=== PATIENT | male | born 1970 | race Caucasian/White ===

== ENCOUNTER 2024-05-15 23:55 | Inpatient (IN) | payer OTHER ==
[~2024-05-15] VITALS: Ht 170.2 cm; Wt 129.6 kg
[2024-05-16] VITALS (7 sets, daily range): BP systolic 134–141; BP diastolic 78–85; PULSE 80–87; RESP 16–20; TEMP 97.9–99.1; O2SAT 92–96
--- NOTE | 2024-05-16 00:10 | ED.PDOC ---
HPI Comments HPI: Poor Historian. 54-year-old male presents to emergency department for six day history of midsternal chest tightness feels heaviness. The symptoms got worse today. Patient has a nonspecific cough. Denies any nausea or vomiting or diarrhea or fever. He says that sometimes when he lays flat he feels wheezing. Past Medcial History: Denies any Past Surgical History: Denies any Denies tobacco abuse REVIEW OF SYSTEMS: CONSTITUTIONAL: Denies acute: fever, diaphoresis, chills, generalized weakness. HEAD: Denies acute: headache, photophobia Eyes: Denies acute: Double vision, vision loss, eye pain, eye discharge. EARS: Denies acute: tinnitus, hearing loss, ear discharge, ear pain, THROAT: Denies acute: sore throat, swelling, difficulty swallowing , pain with swallowing, change in voice. NECK: Denies acute: neck pain, neck swelling, stiff neck. HEART: Denies acute : palpitations, LUNGS: Denies acute: SOB, wheezing, hemoptysis ABDOMEN: Denies acute: abdominal pain, Nausea, Vomiting, diarrhea, melena , hematemesis, hematochezia SKIN: Denies acute: rash, redness, lesions, itchiness. EXTREMITIES: Denies acute: calf pain, numbness, tingling, weakness, denies pain in extremity. Denies acute: Low back pain. Neuro: Denies acute: focal neurological deficit, motor or sensory focal neurological deficit, tremors, seizure like activity, confusion, dizziness, change in mental status, loss of bowel or bladder function, cauda equina like symptoms. : Denies acute: dysuria, hematuria, flank pain, increase in urinary frequency. PSYCH: Denies acute: hallucination, suicidal ideation, homicidal ideation. PHYSICAL EXAM: General: no acute distress, awake and alert. Head: normocephalic, atraumatic. Neck: supple, trachea is midline, no swelling. Throat: Normal phonation. Eyes:, no erythema, no purulent discharge, no proptosis, no icterus. Heart: regular rate, regular rhythm, no significant murmur appreciated. Lungs: no apparent respiratory distress, Able to speak in full sentences. No wheezing, right greater than left rhonchi, no crackles. No stridors Abdomen: non tender to palpation, non distended, soft, no guarding, no rebound, + bowel sounds. Obese Neuro: Awake, Alert, oriented to name, self, situation, follows commands GCS=15. Speech is normal. Skin: no petechia, no purpura, no cyanosis, non-pale, not jaundice. Lower extremities: --trace bilateral - Pitting edema no deformity, no focal swelling, no calf TTP. Makes eye contact. moves all four extremities. Face: no apparent facial droop. Ambulating in the ED independently. Time Seen by MD: 00:04 Reviewed Notes: Nurses Notes, Allergies Allergies: Coded Allergies: Shellfish Allergy (Verified Allergy, Unknown, 05/16/24) Information Source: Patient Was a procedure done? Was a procedure done?: No CP Differential Dx Differential Diagnosis: N/A Differential Diagnosis: Other (Ddx include but not limitied to gastritis, mu sculoskeletal pain, radiculopathy, atypical chest pain, dissection, aneurysm, ACS, unstable angina, hiatal hernia, GERD, anxiety, costochondritis, PE, pneumothroax, neoplasm, cardiac ischemia, drug abuse, anemia.) X-Ray, Labs, Meds, VS Vital Signs Date Time Temp Pulse Resp B/P (MAP) Pulse Ox O2 Delivery O2 Flow Rate FiO2 05/16/24 02:16 76 18 148/83 (104) 98 05/16/24 02:10 87 20 96 Room Air* 0 21 05/16/24 00:42 18 97 Room Air* 0 21 05/16/24 00:12 81 05/16/24 00:08 96 Room Air* 0 21 05/16/24 00:08 99.2 87 20 151/94 (113) 96 Lab Test 05/16/24 03:16 05/16/24 01:22 05/16/24 00:28 05/16/24 00:19 Range/Units Troponin I High Sensitivity Pending 3 L 3 L </=54 ng/L White Blood Count 5.7 4.4-10.8 10^3/uL Red Blood Count 4.88 4.5-5.90 10^6/uL Hemoglobin 14.4 13.5-17.5 g/dL Hematocrit 41.9 41.0-53.0 % Mean Corpuscular Volume 85.9 80.0-100.0 fL Mean Corpuscular Hemoglobin 29.4 28.0-32.0 pg Mean Corpuscular Hemoglobin Concent 34.3 32.0-36.0 g/dL Red Cell Distribution Width 13.8 11.8-14.3 % Platelet Count 205 140-450 10^3/uL Mean Platelet Volume 8.0 6.9-10.8 fL Neutrophils (%) (Auto) 50.3 37.0-80.0 % Lymphocytes (%) (Auto) 34.2 10.0-50.0 % Monocytes (%) (Auto) 12.1 H 0.0-12.0 % Eosinophils (%) (Auto) 2.8 0.0-7.0 % Basophils (%) (Auto) 0.6 0.0-2.0 % Neutrophils # (Auto) 2.9 1.6-8.6 10 ^3/uL Lymphocytes # (Auto) 2.0 0.4-5.4 10 ^3/uL Monocytes # (Auto) 0.7 0-1.3 10 ^3/uL Eosinophils # (Auto) 0.2 0-0.8 10 ^3/uL Basophils # (Auto) 0 0-0.2 10 ^3/uL Nucleated Red Blood Cells 0.0 % Sodium Level 137 136-145 mmol/L Potassium Level 3.9 3.5-5.1 mmol/L Chloride Level 102 98-107 mmol/L Carbon Dioxide Level 27 20-31 mmol/L Anion Gap 8 5-15 Blood Urea Nitrogen 7 L 9-23 mg/dL Creatinine 0.77 0.700-1.30 mg/dL Glomerular Filtration Rate Calc 105 >90 mL/min BUN/Creatinine Ratio 9.1 L 10.0-20.0 Serum Glucose 98 74-106 mg/dL Lactic Acid Level 0.9 0.4-2.0 mmol/L Calcium Level 9.6 8.7-10.4 mg/dL Total Bilirubin 0.4 0.2-1.0 mg/dL Aspartate Amino Transferase (AST) 28 13-40 U/L Alanine Aminotransferase (ALT) 26 7-40 U/L Alkaline Phosphatase 70 46-116 U/L B-Type Natriuretic Peptide 5.29 0-100 pg/mL Total Protein 7.0 5.7-8.2 g/dL Albumin 4.3 3.2-4.8 g/dL Influenza Type A Antigen Negative Negative Influenza Type B Antigen Negative Negative SARS-CoV-2 Antigen (Rapid) Negative NEGATIVE Current Medications Medications (Trade) Dose Ordered Sig/Phil Route Start Time Stop Time Status Last Admin Aspirin 325 mg ONCE ONCE PO 05/16/24 00:30 05/16/24 00:31 DC 05/16/24 01:39 Albuterol (Ventolin Medneb) 2.5 mg ONCE ONCE NEB 05/16/24 00:30 05/16/24 00:31 DC 05/16/24 00:41 Ipratropium [place] (Atrovent Medneb) 1 mg ONCE ONCE NEB 05/16/24 00:30 05/16/24 00:31 DC 05/16/24 00:41 Methylprednisolone Sodium Succinate (Solu Medrol) 125 mg ONCE ONCE IV 05/16/24 00:30 05/16/24 00:31 DC 05/16/24 01:39 Ceftriaxone Sodium 50 ml @ 100 mls/hr ONCE ONCE IV 05/16/24 01:30 05/16/24 01:59 DC 05/16/24 01:39 Time of 1ST Reevaluation: 00:00 Reevaluation 1ST: N/A Patient Education/Counseling: Diagnosis, Treatment Family Education/Counseling: Other Comments Patient presented with the above HPI.---cough/chest pain---workup was initiated. patient was found with the above mentioned diagnosis. the following medications were ordered: please refer to order lists of meds and tests obtained by myself Dr. Downs. Patient ED course and VS have been stabilized. Patient has been reassessed in the ED and remained in a stable condition. Pertinent incidental findings were discussed with the patient and/or family. Patient/family voices understanding and is agreeable with plan. Patient has been observed in the ED adequate length of time to insure improvement/stability. Escalation of care considered: Consideration of escalation to observation or admission Patient was ADMITTED to the medicine team for further evaluation and treatment of their presentation. All the reports of any imaging studies that were ordered by myself were reviewed by myself. Departure 1 Departure Time of Disposition: 00:19 Impression: Primary Impression: Chest pain at rest Additional Impression: Pneumonia Disposition: ADMITTED INPATIENT Admit to: [facility] Condition: Guarded Discharged With: Self Critical Care Note Critical Care Time?: No Heart Score Heart Score: Heart Score Response (Comments) Value History Moderate Suspicious 1 EKG Normal 0 Age 45-64 1 Risk Factors 1 or 2 risk factors 1 Troponin Normal limit 0 Total 3 WING DOWNS DO May 16, 2024 00:10
[2024-05-16] MEDS: IPRATROPIUM BROM 0.5 MG/2.5ML INH SOL NEB ONE (00:41)
[2024-05-16] MEDS: ALBUTEROL SULF 2.5 MG/0.5ML(0.5%) NEB SOLN NEB ONE (00:41)
[2024-05-16 00:46] LABS: Basophils # (auto) 0 10 ^3/uL (0-0.2); Basophils % (auto) 0.6 % (0.0-2.0); Eosinophils # (auto) 0.2 10 ^3/uL (0-0.8); Eosinophils % (auto) 2.8 % (0.0-7.0); Hematocrit 41.9 % (41.0-53.0); Hemoglobin 14.4 g/dL (13.5-17.5); Lymphocytes % (auto) 34.2 % (10.0-50.0); Mean Corpuscular Hemoglobin 29.4 pg (28.0-32.0); Mean Corpuscular Hgb Conc. 34.3 g/dL (32.0-36.0); Mean Corpuscular Volume 85.9 fL (80.0-100.0); Monocytes # (auto) 0.7 10 ^3/uL (0-1.3); Monocytes % (auto) 12.1 % (0.0-12.0); Neutrophils # (auto) 2.9 10 ^3/uL (1.6-8.6); Neutrophils % (auto) 50.3 % (37.0-80.0); Platelet Count (auto) 205 10^3/uL (140-450); Red Blood Cells 4.88 10^6/uL (4.5-5.90); Red Cell Distribution Width 13.8 % (11.8-14.3); White Blood Cell 5.7 10^3/uL (4.4-10.8)
--- NOTE | 2024-05-16 01:00 | DVH ---
CHEST RADIOGRAPH Indication: cp, cough Technique: Single frontal view of the chest was obtained COMPARISON: None FINDINGS: Lines and Tubes: None Lungs: Bibasilar linear opacities may reflect atelectasis or mild pneumonia Pleura: No effusion. No pneumothorax. Cardiomediastinal contours: Unremarkable Bones: Unremarkable IMPRESSION: 1. Bibasilar linear opacities may reflect atelectasis or mild pneumonia.
[2024-05-16 01:02] LABS: Alanine Aminotransferase 26 U/L (7-40); Albumin 4.3 g/dL (3.2-4.8); Alkaline Phosphatase 70 U/L (46-116); Anion Gap 8 (5-15); Aspartate Aminotransferase 28 U/L (13-40); BUN/Creatinine Ratio 9.1 (10.0-20.0); Bilirubin, Total 0.4 mg/dL (0.2-1.0); Calcium 9.6 mg/dL (8.7-10.4); Carbon Dioxide 27 mmol/L (20-31); Chloride 102 mmol/L (98-107); Glucose 98 mg/dL (74-106); Potassium 3.9 mmol/L (3.5-5.1); Sodium 137 mmol/L (136-145)
[2024-05-16 01:03] LABS: Blood Urea Nitrogen 7 mg/dL (9-23)
[2024-05-16 01:04] LABS: COVID19 ANTIGEN SOFIA FIA NEGATIVE (NEGATIVE); Rapid Influenza A Negative (Negative); Rapid Influenza B Negative (Negative)
[2024-05-16] MEDS: NITROGLYCERIN 0.4 MG SL TAB SL ONE (01:35)
[2024-05-16] MEDS: methylPREDNISolone SOD SUCC 125 MG/2 ML VL IV ONE (01:39)
[2024-05-16] MEDS: cefTRIAXone 1GM/50ML D5W 50 ML IV ONE (01:39)
[2024-05-16] MEDS: ASPirin 325 MG TAB PO ONE (01:39)
[2024-05-16] MEDS ORDERED: ALBUTEROL SULF 2.5 MG/0.5ML(0.5%) NEB SOLN NEB PRN (05:15)
[2024-05-16] MEDS ORDERED: ONDANSETRON HCL 4 MG/2 ML VIAL IV PRN (05:15)
[2024-05-16] MEDS ORDERED: ACETAMINOPHEN 325 MG TAB PO PRN (05:15)
[2024-05-16] MEDS ORDERED: guaiFENesin-DM 100/10mg/5ml SYR PO PRN (05:15)
--- NOTE | 2024-05-16 05:26 | DVHHP2 ---
History of Present Illness Reason for Visit: Shortness of breath History of Present Illness 54-year-old presents for evaluation of a six day history of having a productive cough with yellow/whitish phlegm. He reports also having chest tightness with shortness of breath, intermittent fever. Denies chest pain at the moment. No other acute complaints reported. Past Medical History Hypertension and obstructive sleep Past Surgical History Denies Family History Noncontributory Smoke: No ALCOHOL: none Drugs: None Lives: with Family Review of Systems Review of Systems Review of systems are currently negative otherwise addressed in HPI. Allergies: Coded Allergies: Shellfish Allergy (Verified Allergy, Unknown, 05/16/24) Exam Vital Signs Vital Signs Date Time Temp Pulse Resp B/P (MAP) Pulse Ox O2 Delivery O2 Flow Rate FiO2 05/16/24 02:16 76 18 148/83 (104) 98 05/16/24 02:10 Room Air* 0 21 05/16/24 00:08 99.2 Exam Gen: 54-year-old male in mild distress., obese Skin: Warm, dry, normal color and texture, no rash. HEENT: Normocephalic atraumatic, mucous membranes moist and pink. Neck: Cervical and supraclavicular nodes normal without enlargement, trachea is midline, thyroid gland is normal without masses. Pulmonary: Diminished breath sounds bilaterally Cardiac: Regular rate and rhythm. No murmur Abdomen: Soft, nontender, nondistended, bowel sounds present all 4 quadrants, no guarding, no rigidity, no organomegaly. Extremities: No cyanosis, clubbing, no edema Neuro: Cranial nerves II through XII grossly intact, normal affect and speech, no focal motor deficits. Labs/Xrays ORDERING PHYSICIAN: WING ROBBINS DO PROCEDURE(s): CXRP - CHEST PORTABLE REASON: cp, cough ORDER NUMBER(s): [id number], ACCESSION NUMBER(s): [id number] CHEST RADIOGRAPH Indication: cp, cough Technique: Single frontal view of the chest was obtained COMPARISON: None FINDINGS: Lines and Tubes: None Lungs: Bibasilar linear opacities may reflect atelectasis or mild pneumonia Pleura: No effusion. No pneumothorax. Cardiomediastinal contours: Unremarkable Bones: Unremarkable IMPRESSION: 1. Bibasilar linear opacities may reflect atelectasis or mild pneumonia. Labs Test 05/16/24 03:16 05/16/24 00:28 05/16/24 00:19 Range/Units Troponin I High Sensitivity 3 L </=54 ng/L White Blood Count 5.7 4.4-10.8 10^3/uL Red Blood Count 4.88 4.5-5.90 10^6/uL Hemoglobin 14.4 13.5-17.5 g/dL Hematocrit 41.9 41.0-53.0 % Mean Corpuscular Volume 85.9 80.0-100.0 fL Mean Corpuscular Hemoglobin 29.4 28.0-32.0 pg Mean Corpuscular Hemoglobin Concent 34.3 32.0-36.0 g/dL Red Cell Distribution Width 13.8 11.8-14.3 % Platelet Count 205 140-450 10^3/uL Mean Platelet Volume 8.0 6.9-10.8 fL Neutrophils (%) (Auto) 50.3 37.0-80.0 % Lymphocytes (%) (Auto) 34.2 10.0-50.0 % Monocytes (%) (Auto) 12.1 H 0.0-12.0 % Eosinophils (%) (Auto) 2.8 0.0-7.0 % Basophils (%) (Auto) 0.6 0.0-2.0 % Neutrophils # (Auto) 2.9 1.6-8.6 10 ^3/uL Lymphocytes # (Auto) 2.0 0.4-5.4 10 ^3/uL Monocytes # (Auto) 0.7 0-1.3 10 ^3/uL Eosinophils # (Auto) 0.2 0-0.8 10 ^3/uL Basophils # (Auto) 0 0-0.2 10 ^3/uL Nucleated Red Blood Cells 0.0 % Sodium Level 137 136-145 mmol/L Potassium Level 3.9 3.5-5.1 mmol/L Chloride Level 102 98-107 mmol/L Carbon Dioxide Level 27 20-31 mmol/L Anion Gap 8 5-15 Blood Urea Nitrogen 7 L 9-23 mg/dL Creatinine 0.77 0.700-1.30 mg/dL Glomerular Filtration Rate Calc 105 >90 mL/min BUN/Creatinine Ratio 9.1 L 10.0-20.0 Serum Glucose 98 74-106 mg/dL Lactic Acid Level 0.9 0.4-2.0 mmol/L Calcium Level 9.6 8.7-10.4 mg/dL Total Bilirubin 0.4 0.2-1.0 mg/dL Aspartate Amino Transferase (AST) 28 13-40 U/L Alanine Aminotransferase (ALT) 26 7-40 U/L Alkaline Phosphatase 70 46-116 U/L B-Type Natriuretic Peptide 5.29 0-100 pg/mL Total Protein 7.0 5.7-8.2 g/dL Albumin 4.3 3.2-4.8 g/dL Influenza Type A Antigen Negative Negative Influenza Type B Antigen Negative Negative SARS-CoV-2 Antigen (Rapid) Negative NEGATIVE Assessment/Plan Assessment/Plan Assessment Community-acquired pneumonia Acute respiratory distress Morbid obesity Hypertension Plan Admit the patient to Med surge to the hospitalist Azithromycin/Rocephin Med nebs Resume home medications Continue treatment per orders. Plan discussed with: Patient My Orders Orders - CARA SHAY Procedure Category Date Status Time Admit ADMIT 05/16/24 Transmitted 04:28 Lisinopril Tablet PHA 05/16/24 In Process (Zestril Tablet) 10:00 Albuterol Medneb PHA 05/16/24 In Process (Ventolin Medneb) 05:15 Guaifenesin-Dextromet PHA 05/16/24 In Process Liquid (Robitussin 05:15 Basic Metabolic Panel LAB 05/17/24 Verified 04:00 Ondansetron Hcl PHA 05/16/24 In Process (Zofran) 05:15 Complete Blood Count LAB 05/17/24 Verified 04:00 Cardiac DIET 05/16/24 Transmitted Diet-2gna,Lofat,Lochol Breakfast Condition: Stable ADITYA 05/16/24 In Process 05:05 Acetaminophen Tablet PHA 05/16/24 In Process (Tylenol Tablet) 05:15 Bedrest With Bathroom ADITYA 05/16/24 In Process Privileg 05:05 Ceftriaxone 1gm/50ml PHA 05/17/24 In Process D5w (Rocephin) 09:00 Azithromycin 500mg/ PHA 05/16/24 In Process 250ml (Zithromax 50 05:30 Azithromycin 500mg/ PHA 05/17/24 In Process 250ml (Zithromax 50 10:00 Date of Service: May 16, 2024 Billing Provider: CARA SHAY Common Visit Codes: [id number] INP/OBS CARE (HIGH) CARA SHAY May 16, 2024 05:25
[2024-05-16] MEDS: AZITHROMYCIN 500MG/ 250ML 250 ML IV ONE (06:01)
[2024-05-16] MEDS: LISINOPRIL 5 MG TAB PO SCH (09:44)
[2024-05-16] MEDS ORDERED: FLUT1SPR5 (13:24)
[2024-05-16] MEDS ORDERED: LEVO500T91 PO (13:24)
--- NOTE | 2024-05-16 13:35 | DVHDS2 ---
Discharge Summary Date of Admission May 16, 2024 at 04:28 Date of Discharge: May 16, 2024 Labs/Diagnostic Data: Laboratory Results Test 05/16/24 03:16 05/16/24 00:28 05/16/24 00:19 Troponin I High Sensitivity 3 ng/L (</=54) White Blood Count 5.7 10^3/uL (4.4-10.8) Red Blood Count 4.88 10^6/uL (4.5-5.90) Hemoglobin 14.4 g/dL (13.5-17.5) Hematocrit 41.9 % (41.0-53.0) Mean Corpuscular Volume 85.9 fL (80.0-100.0) Mean Corpuscular Hemoglobin 29.4 pg (28.0-32.0) Mean Corpuscular Hemoglobin Concent 34.3 g/dL (32.0-36.0) Red Cell Distribution Width 13.8 % (11.8-14.3) Platelet Count 205 10^3/uL (140-450) Mean Platelet Volume 8.0 fL (6.9-10.8) Neutrophils (%) (Auto) 50.3 % (37.0-80.0) Lymphocytes (%) (Auto) 34.2 % (10.0-50.0) Monocytes (%) (Auto) 12.1 % (0.0-12.0) Eosinophils (%) (Auto) 2.8 % (0.0-7.0) Basophils (%) (Auto) 0.6 % (0.0-2.0) Neutrophils # (Auto) 2.9 10 ^3/uL (1.6-8.6) Lymphocytes # (Auto) 2.0 10 ^3/uL (0.4-5.4) Monocytes # (Auto) 0.7 10 ^3/uL (0-1.3) Eosinophils # (Auto) 0.2 10 ^3/uL (0-0.8) Basophils # (Auto) 0 10 ^3/uL (0-0.2) Nucleated Red Blood Cells 0.0 % Sodium Level 137 mmol/L (136-145) Potassium Level 3.9 mmol/L (3.5-5.1) Chloride Level 102 mmol/L (98-107) Carbon Dioxide Level 27 mmol/L (20-31) Anion Gap 8 (5-15) Blood Urea Nitrogen 7 mg/dL (9-23) Creatinine 0.77 mg/dL (0.700-1.30) Glomerular Filtration Rate Calc 105 mL/min (>90) BUN/Creatinine Ratio 9.1 (10.0-20.0) Serum Glucose 98 mg/dL (74-106) Lactic Acid Level 0.9 mmol/L (0.4-2.0) Calcium Level 9.6 mg/dL (8.7-10.4) Total Bilirubin 0.4 mg/dL (0.2-1.0) Aspartate Amino Transferase (AST) 28 U/L (13-40) Alanine Aminotransferase (ALT) 26 U/L (7-40) Alkaline Phosphatase 70 U/L (46-116) B-Type Natriuretic Peptide 5.29 pg/mL (0-100) Total Protein 7.0 g/dL (5.7-8.2) Albumin 4.3 g/dL (3.2-4.8) Influenza Type A Antigen Negative (Negative) Influenza Type B Antigen Negative (Negative) SARS-CoV-2 Antigen (Rapid) Negative (NEGATIVE) Other Laboratory Tests 05/16/24 00:28 Brief Hx & Hospital Course: 54 yo M with sleep apnea on CPAP admitted for PNA. Patient reported having viral symptoms past 6 days, which improved initially and worsening 2 days [employer]. Patient has no O2 requirements. Flu and COVID negative. Patient feels better after IV abx. Stable to discharge home with oral levofloxacin and to follow up with PCP. Patient also have elevated BP reading, not taking any meds for HTN. Second reading can be done by PCP to diagnose hypertension. Condition at Discharge: Good Final Diagnosis/Problems List viral PNA with superimposed bacterial PNA Discharge Disposition: Home Discharge Instruct/Medications Diet: Regular Activity: No Restrictions, As Tolerated Medications: levofloxacin 500mg daily for 7 days 45 Discharge Statement: "Patient was advised to return to the ER or call 911 if any headaches, dizziness, shortness of breath, chest pain, abdominal pain, bleeding, fevers, or worsening of medical condition. Patient was counseled about treatment plan, medications, possible side effects, patientverbalized understanding. All questions were answered to the best of my ability. This discharge took greater then 30 minutes in planning, reviewing documentation, counseling the patient, and discussing with other team members." ASSESSMENT ASSESSMENT Assessment viral PNA with superimposed bacterial PNA elevated BP with no htn diagnosis Date of Service: May 16, 2024 Billing Provider: SRAVANI MILLER MD Common Visit Codes: 75425-QUH/OBS DISCH DAY >30min SRAVANI MILLER MD May 16, 2024 13:35
[2024-05-17] MEDS ORDERED: cefTRIAXone 1GM/50ML D5W 50 ML IV SCH (09:00)
[2024-05-17] MEDS ORDERED: AZITHROMYCIN 500MG/ 250ML 250 ML IV SCH (10:00)
--- NOTE | 2024-05-18 06:24 | ECG ---
[facility] Test Date: 2024-05-16 Test Time: 00:12:31 Pat Name: MICHELLE ALEXANDRA Department: ED Room: [address] [place] [address] Gender: M [employer] Operator: NITA : 1970 Requested By: WING ROBBINS Order Number: [id number] Reading MD: Measurements Intervals [place] Rate: 81 P: 44 HI: 154 QRS: -32 QRSD: 99 T: 2 QT: 383 QTc: 445 Interpretive Statements Sinus rhythm Abnormal R-wave progression, early transition Left ventricular hypertrophy Please click the below link to view image of tracing.
== END 2024-05-16 14:29 | disposition home or self-care (01) | DRG 194 ==
LOC: ER 05-16 → OVERFLOW 05-16 04:28
PROVIDERS: ADMIT Nurse Practitioner; ATTEND Nurse Practitioner
DX: J12.9 Viral pneumonia, unspecified (principal); Z68.41 Body mass index [BMI] 40.0-44.9, adult; E66.01 Morbid (severe) obesity due to excess calories; J15.9 Unspecified bacterial pneumonia; Z20.822 Contact with and (suspected) exposure to COVID-19; I10 Essential (primary) hypertension; G47.30 Sleep apnea, unspecified; Z91.013 Allergy to seafood; Z79.899 Other long term (current) drug therapy
CPT/HCPCS: 36415; 71045; 80053; 83605; 83880; 84484; 85025; 87426; 87804; 93005; 94640; G0378